=== PATIENT | female | born 1960 | race Caucasian/White ===

== ENCOUNTER 2017-03-26 18:09 | Emergency (ER) | payer BC ==
[2017-03-26 18:40] VITALS: BP 137/64
--- NOTE | 2017-03-26 19:09 | ED ---
Abdominal Pain/Female - HPI Summary HPI Summary: 56 yr old female with the complaint of abdominal pain. Onset of pain 4 days ago. Located in the epigastric area and the right lower quadrant. The patient has been having pain intermittently that comes in waves described like cramps. She has had prior abdominal surgeries. She is distended more than usual. She complains of having diarrhea as well. Denies fever and chills. Denies chest pain, sob. No other complaints. - History of Current Complaint Chief Complaint: UCGI Stated Complaint: ABD PAIN Hx Last Menstrual Period: yrs Pain Intensity: 3 Allergies/Adverse Reactions: Allergies Allergy/AdvReac Type Severity Reaction Status Date / Time No Known Allergies Allergy Verified 03/26/17 18:25 Home Medications: Home Medications Liraglutide [Victoza] 18 mg SC QPM 03/26/17 [History Confirmed 03/26/17] Ms Duloxetine 30 mg PO QAM 03/26/17 [History Confirmed 03/26/17] Ms Folic Acid 1 mg PO DAILY 03/26/17 [History Confirmed 03/26/17] Ms Glimeperide 2 mg PO BID 03/26/17 [History Confirmed 03/26/17] Ms Lisinopril 10 mg PO QPM 03/26/17 [History Confirmed 03/26/17] Ms Metformin 1,000 mg PO QPM 03/26/17 [History Confirmed 03/26/17] Ms Methtrexate 15 mg PO SEE INSTRUCTIONS 03/26/17 [History Confirmed 03/26/17] PMH/Surg Hx/FS Hx/Imm Hx Endocrine/Hematology History: Reports: Hx Diabetes - Type 2 Cardiovascular History: Denies: Hx Hypertension, Hx Pacemaker/ICD Respiratory History: Reports: Hx Sleep Apnea - HAS CPAP- DOESN'T USE History: Denies: Hx Renal Disease Sensory History: Denies: Hx Hearing Aid Psychiatric History: Denies: Hx Panic Disorder - Cancer History Hx Chemotherapy: No Hx Radiation Therapy: No - Surgical History Surgery Procedure, Year, and Place: CSP - FUSION - W/ PLATE & SCREWS -2000. LUMBAR DECOMPRESSION - 2003. GALLBLADDER. APPENDECTOMY; right carpal tunnel . VARICOSE VEIN SURG W/ STENTING Hx Anesthesia Reactions: No Infectious Disease History: No Infectious Disease History: Denies: Traveled Outside the [place] in Last 30 Days - Social History Alcohol Use: None Substance Use Type: Reports: None Smoking Status (MU): Heavy Every Day Tobacco Smoker Amount Used/How Often: 1 PPD X 30 YEARS Review of Systems Constitutional: Negative Positive: Abdominal Pain, Diarrhea All Other Systems Reviewed And Are Negative: Yes Physical Exam Triage Information Reviewed: Yes Vital Signs On Initial Exam: Initial Vitals Temp Pulse Resp BP Pulse Ox 98.2 F 106 18 137/64 97 03/26/17 18:27 18 18:27 03/26/17 18:27 03/26/17 18:27 03/26/17 18:27 Vital Signs Reviewed: Yes Appearance: Positive: Well-Appearing, No Pain Distress Skin: Positive: Warm, Skin Color Reflects Adequate Perfusion Head/Face: Positive: Normal Head/Face Inspection Eyes: Positive: EOMI ENT: Positive: Normal ENT inspection Neck: Positive: Supple, Nontender Respiratory/Lung Sounds: Positive: Clear to Auscultation, Breath Sounds Present Cardiovascular: Positive: RRR. Negative: Murmur Abdomen Description: Positive: Distended, Other: - tender in the right lower and also the epigastric areas with overall abdominal distention. Musculoskeletal: Positive: Strength/ROM Intact Neurological: Positive: Sensory/Motor Intact, Alert, Oriented to Person Place, Time, CN Intact II-III Psychiatric: Positive: Normal - Vaughn Coma Scale Best Eye Response: 4 - Spontaneous Best Motor Response: 6 - Obeys Commands Best Verbal Response: 5 - Oriented Coma Scale Total: 15 Diagnostics - Vital Signs Vital Signs Temp Pulse Resp BP Pulse Ox 03/26/17 18:27 98.2 F 106 18 137/64 97 - Laboratory Lab Statement: Any lab studies that have been ordered have been reviewed, and results considered in the medical decision making process. Abdominal Pain Fem Course/Dx - Course Course Of Treatment: 56 yr old with abdominal pain and diarrhea with some distention. she needs to go to the ER for labs and ct scan and further work up. 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 - Diagnoses Provider Diagnoses: Abdominal pain Discharge - Discharge Plan Condition: Good Disposition: HOME Patient Education Materials: Acute Abdominal Pain (ED) Referrals: Venecia Gayle MD [Primary Care Provider] - Additional Instructions: please go to the ER for further evaluation now.
== END 2017-03-26 19:10 | disposition home or self-care (01) ==
LOC: UCCORT 18:09
DX: R10.13 Epigastric pain (principal); R10.31 Right lower quadrant pain; R19.7 Diarrhea, unspecified; E11.9 Type 2 diabetes mellitus without complications; Z79.84 Long term (current) use of oral hypoglycemic drugs; G47.30 Sleep apnea, unspecified; Z90.49 Acquired absence of other specified parts of digestive tract; Z72.0 Tobacco use
CPT/HCPCS: 99212; G0463

== ENCOUNTER 2018-04-06 15:52 | Emergency (ER) | payer BC ==
[2018-04-06] MEDS ORDERED: NS 0.9% 1000 ML** 1,000 ML IV ONE (16:46)
[2018-04-06 17:03] LABS: Influenza A Molecular NEGATIVE (Negative); Influenza B Molecular NEGATIVE (Negative)
[2018-04-06] MEDS ORDERED: Loperamide CAP* 2 MG PO ONE (17:15)
--- NOTE | 2018-04-06 17:30 | UC ---
UC General HPI - HPI Summary HPI Summary: Pt presents with c/o generalized fatigue, body aches and reports have sudden onset of diarrhea last night with up top 75 episodes of loose stools in the last 24 hours. Pt has not taken any otc anti diarrhea medication. Pt has not taken any medications including her hypertension medication and her DM II medications. 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 Onset/Duration: Sudden Onset, Lasting Days, Still Present Timing: Constant Onset Severity: Moderate Current Severity: Moderate Pain Intensity: 7 Associated Signs & Symptoms: Positive: Diarrhea, Decreased Oral Intake - Allergy/Home Medications Allergies/Adverse Reactions: Allergies Allergy/AdvReac Type Severity Reaction Status Date / Time No Known Allergies Allergy Verified 04/06/18 16:40 PMH/Surg Hx/FS Hx/Imm Hx Previously Healthy: Yes Endocrine History: Diabetes Cardiovascular History: Hypertension - Surgical History Surgical History: Yes Surgery Procedure, Year, and Place: CSP - FUSION - W/ PLATE & SCREWS -2000. LUMBAR DECOMPRESSION - 2003. GALLBLADDER. APPENDECTOMY; right carpal tunnel . VARICOSE VEIN SURG W/ STENTING - Family History Known Family History: Positive: Cardiac Disease - Social History Occupation: Employed Full-time Lives: With Family Alcohol Use: None Substance Use Type: Excessive Caffeine Substance Use Comment - Amount & Last Used: 18 cups/day Smoking Status (MU): Former Smoker Amount Used/How Often: 1 PPD X 30 YEARS Have You Smoked in the Last Year: Yes When Did the Patient Quit Smoking/Using Tobacco: 09/2017 - Immunization History Most Recent Influenza Vaccination: never Most Recent Tetanus Shot: unsure Most Recent Pneumonia Vaccination: never Review of Systems All Other Systems Reviewed And Are Negative: Yes Constitutional: Positive: Fatigue Skin: Positive: Negative Eyes: Positive: Negative ENT: Positive: Negative Respiratory: Positive: Negative Cardiovascular: Positive: Negative Gastrointestinal: Positive: Diarrhea Genitourinary: Positive: Negative Motor: Positive: Negative Neurovascular: Positive: Negative Musculoskeletal: Positive: Negative Neurological: Positive: Negative Psychological: Positive: Negative Is Patient Immunocompromised?: No Physical Exam Triage Information Reviewed: Yes Appearance: Ill-Appearing Vital Signs: Initial Vital Signs Temp 97.4 F 04/06/18 16:35 Pulse 138 02/13/19 16:35 Resp 22 04/06/18 16:35 BP 93/49 04/06/18 16:35 Pulse Ox 96 04/06/18 16:35 Vital Signs Reviewed: Yes Eye Exam: Normal ENT Exam: Normal Dental Exam: Normal Neck exam: Normal Respiratory Exam: Normal Cardiovascular: Positive: Tachycardia Abdominal Exam: Normal Abdomen Description: Positive: Nontender Musculoskeletal Exam: Normal Neurological Exam: Normal Psychological Exam: Normal Skin Exam: Normal Course/Dx - Course Course Of Treatment: I discussed my concernes with the pt and instructed her to seek furthe testing and evaluation at the closest emergency room if her symptoms do not improve or they worsen. She was instructed to take her DM II Medicatiosn as soon as she returned home, to drink fluids, take antidiarrhea medication immediately and to eat food that are potassium rich. Pt reports at time of discharge that she is feeling much better than she did upon arrival and would not go to the emergency room after leaving our facility. She did agree to seek advanced medicaal care if her symptoms did not improve or they worsened. - Differential Dx - Multi-Symptom Differential Diagnoses: Sepsis, Urinary Tract Infection - Diagnoses Provider Diagnosis: Tachycardia, Diarrhea Discharge - Sign-Out/Discharge Documenting (check all that apply): Patient Departure All imaging exams completed and their final reports reviewed: No Studies - Discharge Plan Condition: Stable Disposition: HOME-RECOMMEND TO ED Patient Education Materials: Acute Diarrhea (ED), Tachycardia (ED) Referrals: Venecia Gayle MD [Primary Care Provider] - As Soon As Possible Additional Instructions: PLEASE FOLLOW UP WITH YOUR PCP SOON POSSIBLE. DO NOT TAKE YOUR BLOOD PRESSURE MEDICATION TONIGHT. PLEASE RESUME TAKING YOUR DIABETES MEDICATION SOON POSSIBLE. PLEASE BEGIN ANTIDIARRHEA MEDICATION SOON YOU RETURN HOME. IF YOUR SYMPTOMS DO NOT IMPROVE,YOU ARE TO CALL 911 TO BE TAKEN TO THE CLOSEST EMERGENCY ROOM. - Billing Disposition and Condition Condition: STABLE Disposition: Home-Recommend to ED
[2018-04-06 18:43] VITALS: BP 100/47
[2018-04-07 11:44] LABS: Albumin 4.5 g/dL (3.2-5.2); CO2 Carbon Dioxide 16 mmol/L (22-32); Calcium 8.7 mg/dL (8.6-10.3); Chloride 102 mmol/L (101-111); Sodium 130 mmol/L (135-145)
[2018-04-07 11:50] LABS: ALT 48 U/L (7-52); Albumin/Globulin Ratio 1.9 (1-3); Alkaline Phosphatase 80 U/L (34-104); BUN/Creatinine Ratio 24.4 (8-20); Blood Urea Nitrogen 21 mg/dL (6-24); EGFR Non-African American 67.8 (>60); Globulin 2.4 g/dL (2-4); Glucose 215 mg/dL (70-100); Total Protein 6.9 g/dL (6.4-8.9)
[2018-04-07 11:59] LABS: Anion Gap 12 mmol/L (2-11)
--- NOTE | 2018-04-07 12:56 | UC ---
- Progress Note Progress Note: Labs and yesterday visits reviewed. Diabetic with profuse diarrhea. Serum sodium is mildly reduced at 130, and her potassium could not be run due to hemolyzed sample. Was tachycardic with systolic BP of 98. Advise to have lab work repeated if feeling dizzy, unwell, has palpitations or not toleratinf fluids. Course/Dx - Diagnoses Provider Diagnoses: Tachycardia, Diarrhea Discharge - Sign-Out/Discharge Documenting (check all that apply): Patient Departure All imaging exams completed and their final reports reviewed: No Studies - Discharge Plan Condition: Stable Disposition: HOME-RECOMMEND TO ED Patient Education Materials: Acute Diarrhea (ED), Tachycardia (ED) Referrals: Venecia Gayle MD [Primary Care Provider] - As Soon As Possible Additional Instructions: PLEASE FOLLOW UP WITH YOUR PCP SOON POSSIBLE. DO NOT TAKE YOUR BLOOD PRESSURE MEDICATION TONIGHT. PLEASE RESUME TAKING YOUR DIABETES MEDICATION SOON POSSIBLE. PLEASE BEGIN ANTIDIARRHEA MEDICATION SOON YOU RETURN HOME. IF YOUR SYMPTOMS DO NOT IMPROVE,YOU ARE TO CALL 911 TO BE TAKEN TO THE CLOSEST EMERGENCY ROOM. - Billing Disposition and Condition Condition: STABLE Disposition: Home-Recommend to ED
== END 2018-04-06 18:50 | disposition home health service (06) ==
LOC: UCCORT 15:52
DX: R00.0 Tachycardia, unspecified (principal); R19.7 Diarrhea, unspecified; Z87.891 Personal history of nicotine dependence; E11.9 Type 2 diabetes mellitus without complications; I10 Essential (primary) hypertension
CPT/HCPCS: 36415; 80053; 93005; 96360; 99212; A9270-GY; G0463